=== PATIENT | male | born 1955 | race Caucasian/White ===

== ENCOUNTER 2019-11-17 20:26 | Inpatient (IN) | payer OTHER ==
[~2019-11-17] VITALS: Ht 182.9 cm; Wt 119.3 kg
[~2019-11-17 20:26] MED LIST: ASMANEX0.135 GM; BENTYL20 MG PO; CELEXA 20 MG TA20 MG PO; CLONAZEPAM PO; COUMADIN 10MG T10 M1 PO; COUMADIN 4 MG TA4 M1; COUMADIN 5 MG TA5 M1 PO; CYMBALTA20 MG; INDERAL40 MG PO; INVEGA 3 MG3 MG; LEVOXYL100 MCG PO; LITHIUM CARBON300 M3; LITHIUM CARBON300 M6; LITHIUM CARBON300 M6 PO; LOTRIMIN30 GM; LOVENOX; LOXAPINE5 MG PO; NEURONTIN 300300 M1 PO; OXYCODONE HCL5 M1 PO; PHENOBARBITAL16.2 MG PO; PRILOSEC 20 MG20 MG PO; PROVENTIL; PROZAC 20 MG20 MG PO; VALIUM5 MG PO; VIBRAMYCIN 100100 MG; VICODIN
[2019-11-17 22:12] VITALS: BP 173/93
[2019-11-17] MEDS ORDERED: CELEXA 10 MG TA10 M1 PO (23:03)
[2019-11-17] MEDS ORDERED: FLEXERIL PO ×2 (23:07→23:09)
[2019-11-17] MEDS ORDERED: ELIQUIS2.5 MG PO (23:12)
--- NOTE | 2019-11-18 02:21 | NUR ---
ASSESSMENTS CHARTED, MEDS CHARTED GIVEN. PATIENT ARRIVED FROM [facility] VIA EMS A DIRECT ADMIT. C/O CHEST PAIN 5/10 WITH NITROPASTE ON RIGHT CHEST. ELEVATED TROPONIN. HAD BEEN PLACED ON HEPARIN DRIP AT [place] WHICH CAUSED HEMATURIA. DRIP WAS DISCONTINUED PRIOR TO TRANSFER TO [facility]. PATIENT SR/SB ON TELEMETRY, NPO AT MIDNIGHT FOR POSSIBLE PROCEDURE IN THE AM. RESTING CONFORTABLY IN BED DURING SHIFT.
[2019-11-18 05:10] VITALS: BP 132/75
[2019-11-18 05:46] LABS: HEMATOCRIT 41.7 % (42.0-52.0); HEMOGLOBIN 13.7 gm/dL (14.0-18.0); MCHC 32.8 g/dL (28.0-37.0); MCV 88.5 fL (80.0-100.0); RBC 4.71 mil/uL (4.50-6.00); RDW 14.7 % (10.5-14.5); WBC 8.3 thou/uL (4.0-11.0)
[2019-11-18 06:19] LABS: ANION GAP 6 mmol/L (7-16); BUN 17 mg/dL (7-18); CALCIUM 8.6 mg/dL (8.5-10.1); CHLORIDE 109 mmol/L (98-107); CHOLESTEROL 133 mg/dL (<200); CO2 28 mmol/L (21-32); CREATININE 0.8 mg/dL (0.7-1.3); GLUCOSE 92 mg/dL (74-106); HDL CHOLESTEROL 41 mg/dL (>40); LDL CHOLESTEROL 59 mg/dL (<100); MAGNESIUM 2.1 mg/dL (1.8-2.4); POTASSIUM 3.6 mmol/L (3.5-5.1); SODIUM 143 mmol/L (136-145); TC:HDL 3.2 Ratio (Not establshd); TRIGLYCERIDE 166 mg/dL (<150); TROPONIN-I <0.06 ng/mL (<0.06); VLDL 33 mg/dL (<40)
[2019-11-18 06:20] LABS: SERUM ASSESSMENT Clear
[2019-11-18 08:08] VITALS: BP 138/71
--- NOTE | 2019-11-18 09:00 | EKG ---
[facility] [place] [address] ELECTROCARDIOGRAM REPORT Name: CHARLINE MARTINEZ Room #: 208-P ADM IN M.R.#: [id number] Admission: 11/17/19 Attend Phys: Jose Mraia Sparrow MD Discharge: Date of : 53 Report #: [id number] THIS REPORT FOR: cc: Alvaro Daugherty MD, James L. DO Lundgren, Craig H. MD [facility] ~ THIS REPORT FOR: //name// [facility] Test Date: 2019-11-18 Test Time: 07:46:06 Pat Name: CHARLINE MARTINEZ Department: Room: 208 P Gender: M Contact Person: Ladarius GOMES : 1955 Requested By: Michelle Silva Order Number: [id number] MD: Daniel Martinez Measurements Intervals [place] Rate: 61 P: -1 WY: 177 QRS: -44 QRSD: 117 T: 80 QT: 396 QTc: 399 Interpretive Statements Poor quality data, interpretation may be affected Sinus rhythm Leftward axis Compared to ECG 06/12/2013 14:28:37 Electrical artifact is now present Electronically Signed On 11-18-2019 8:57:58 CDT by Daniel Martinez [email or web address] <ELECTRONICALLY SIGNED> By: Daniel Martinez MD, [facility] 11/18/19 0857 [id number] Daniel Martinez MD, FAC /EPI
[2019-11-18 12:26] VITALS: BP 139/80
[2019-11-18 17:41] VITALS: BP 139/80
[2019-11-18 17:53] VITALS: BP 155/78
--- NOTE | 2019-11-18 18:40 | NUR ---
ASSUMED CARE PT SHIFT CHANGE. ASSESSMENTS CHARTED. MEDS GIVEN PER AUG. PT ALERT AND ORIENTED. STRESS TODAY. PER DR RG RESULTS NORMAL. HOSPITALIST NOTIFIED. FAMILY UPDATED. DC ORDERS ACKNOWLEDGED AND IMPLEMENTED. PT FAMILY WILL WET MIX OPERATOR AT AROUND [phone]. PT CURRENTLY RESTING IN BED. IV WILL BE REMOVED. TELE WILL BE REMOVED. PT WILL LEAVE UNIT WITH ALL BELONGINGS.
== END 2019-11-18 19:00 | disposition home or self-care (01) | DRG 311 ==
LOC: 2N 20:26
PROVIDERS: Nurse Practitioner Family; ADMIT Hospitalist; ATTEND Hospitalist
DX: I24.9 Acute ischemic heart disease, unspecified (principal); J98.11 Atelectasis; F31.9 Bipolar disorder, unspecified; F41.9 Anxiety disorder, unspecified; M25.561 Pain in right knee; G89.29 Other chronic pain; M19.90 Unspecified osteoarthritis, unspecified site; J44.9 Chronic obstructive pulmonary disease, unspecified; M48.00 Spinal stenosis, site unspecified; K21.9 Gastro-esophageal reflux disease without esophagitis; Z96.651 Presence of right artificial knee joint; G47.30 Sleep apnea, unspecified; E78.5 Hyperlipidemia, unspecified; E03.9 Hypothyroidism, unspecified; Z86.718 Personal history of other venous thrombosis and embolism; Z79.01 Long term (current) use of anticoagulants; Z90.49 Acquired absence of other specified parts of digestive tract; Z91.048 Other nonmedicinal substance allergy status; Z79.899 Other long term (current) drug therapy; Z90.12 Acquired absence of left breast and nipple
CPT/HCPCS: 10081